=== PATIENT | female | born 1975 | race Caucasian/White ===

== ENCOUNTER 2018-09-01 05:55 | Emergency (ER) | payer OTHER ==
[~2018-09-01] VITALS: Ht 170.2 cm; Wt 113.4 kg
[2018-09-01 06:27] LABS: ABSOLUTE BASOPHILS 0.1 thou/uL (0.0-0.2); ABSOLUTE EOSINOPHILS 0.2 thou/uL (0.0-0.7); ABSOLUTE LYMPHOCYTES 2.4 thou/uL (0.8-5.3); ABSOLUTE MONOCYTES 0.5 thou/uL (0.0-1.2); ABSOLUTE NEUTROPHILS 3.8 thou/uL (1.6-8.1); BASOPHILS 1.5 %; EOSINOPHILS 2.7 %; HEMATOCRIT 40.4 % (37.0-47.0); HEMOGLOBIN 13.8 gm/dL (12.0-15.0); LYMPHOCYTES 34.5 %; MCH 29.8 pg (26.0-34.0); MCHC 34.2 g/dL (28.0-37.0); MCV 87.2 fL (80.0-100.0); MONOCYTES 7.1 %; MPV 8.5 fl. (7.2-11.1); NUCLEATED RBCS 0 /100WBC; PLATELET COUNT* 360 thou/uL (150-400); POLYS 54.2 %; RBC 4.63 mil/uL (4.20-5.00)
[2018-09-01 06:32] LABS: ANION GAP 10 mmol/L (7-16); BUN 15 mg/dL (7-18); CALCIUM 8.6 mg/dL (8.5-10.1); CHLORIDE 102 mmol/L (98-107); CO2 26 mmol/L (21-32); CREATININE 0.8 mg/dL (0.6-1.3); GLUCOSE 110 mg/dL (70-99); POTASSIUM 3.9 mmol/L (3.5-5.1); SODIUM 138 mmol/L (136-145)
[2018-09-01 06:43] LABS: ALBUMIN 3.6 g/dL (3.4-5.0); ALKALINE PHOSPHATASE 63 U/L (46-116); SGOT 16 U/L (15-37); SGPT 25 U/L (30-65); TOTAL BILIRUBIN 0.3 mg/dL (<0.1-1.0); TOTAL PROTEIN 7.5 g/dL (6.4-8.2); TROPONIN-I LEVEL <0.06 ng/mL (<0.06)
[2018-09-01 07:10] LABS: URINE BILIRUBIN NEGATIVE (Negative); URINE BLOOD NEGATIVE (Negative); URINE CLARITY CLEAR; URINE COLOR YELLOW; URINE GLUCOSE-RANDOM NEGATIVE (Negative); URINE KETONES NEGATIVE (Negative); URINE LEUKOCYTES-REFLEX NEGATIVE (Negative); URINE NITRITE-REFLEX NEGATIVE (Negative); URINE PROTEIN NEGATIVE (Negative); URINE UROBILINOGEN 0.2 E.U./dl (0.2-1.0)
[2018-09-01 07:41] VITALS: BP 128/80
--- NOTE | 2018-09-01 14:29 | EKG ---
[place] [address] ELECTROCARDIOGRAM REPORT Name: TONG ARNOLD Room: [facility]#: [id number] Admission: 09/01/18 Attend Phys: Discharge: 09/01/18 Date of : 75 Report #: [id number] THIS REPORT FOR: //name// [facility] ED Test Date: 2018-09-01 Test Time: 05:59:50 Pat Name: TONG CLAYTON Department: Room: Gender: F Oxyacetylene Torch Operator: : 1975 Requested By: Huyen Perea Order Number: [id number] MD: Otis Fajardo Measurements Intervals [place] Rate: 93 P: 68 ND: 148 QRS: 92 QRSD: 103 T: 38 QT: 374 QTc: 466 Interpretive Statements Sinus rhythm Borderline right axis deviation Baseline wander in lead(s) V5 No previous ECG available for comparison Electronically Signed On 09-01-2018 14:29:35 CDT by Otis Fajardo [email or web address] <ELECTRONICALLY SIGNED> By: Otis Fajardo MD, [facility] 09/01/18 [id number] Otis Fajardo MD, FAC /EPI
== END 2018-09-01 07:41 | disposition home or self-care (01) ==
LOC: M.ERS 05:55
PROVIDERS: Personal Emergency Response Attendant
DX: I49.9 Cardiac arrhythmia, unspecified (principal); F17.210 Nicotine dependence, cigarettes, uncomplicated